=== PATIENT | female | born 2000 | race Caucasian/White ===

== ENCOUNTER 2024-12-24 03:19 | Emergency (ER) | payer BC, MEDICAID, SELFPAY ==
[2024-12-24 03:41] VITALS: BP 103/69; PULSE 63; RESP 18; TEMP 36.6; O2SAT 96; BMI 16.1
[2024-12-24 03:48] VITALS: BP 103/69; PULSE 68; RESP 18; O2SAT 98
[2024-12-24 04:21] LABS: Hematocrit 38.0 % (36-47); Hemoglobin 12.40 g/dL (11.27-16.99); Mean Corpuscular HGB Conc 32.6 g/dL (30-55); Mean Corpuscular Hemoglobin 27.6 pg (27-33); Mean Corpuscular Volume 84.6 fl (85-98); Nucleated Red Blood Cells % 0 %; Platelet Count 406 10^3/cmm (157-399); Red Blood Count 4.49 10^6/uL (3.85-5.65); White Blood Count 11.67 10^3/uL (3.29-11.43)
[2024-12-24 04:22] LABS: Glucose Urine UA Negative (Normal); Nitrate Urine Negative (Negative); Specific Gravity, Urine 1.024 (1.005-1.030)
--- NOTE | 2024-12-24 04:22 | W.ED.ABDPA2 ---
HPI - Abdominal Pain General: Chief Complaint: Abdominal Pain Stated Complaint: Cramping on LT side, vomiting Time Seen by Provider: 12/24/24 03:51 History of Present Illness: Patient is a 24-year-old female who presents with left lower quadrant abdominal pain that began acutely at approximately 1:00 AM today, waking her from sleep. She reports the pain was initially severe with cramping, but has somewhat improved since arrival to the ER. Pain is exacerbated by deep breathing. She experienced one episode of vomiting when the pain first started. Patient denies fever or diarrhea and reports she was unable to have a bowel movement when she tried. She also reports dysuria and believes she may have a UTI currently. Patient had appendectomy in September 2024 for appendicitis and states the current pain is similar but less severe than her previous appendicitis pain. Patient reports that during her previous medical evaluation, there was mention of possible ovarian cysts if appendicitis was ruled out. Patient denies vaginal bleeding or discharge. She reports a negative test approximately two weeks ago after her last menstrual period. Related Data Previous Rx's ?Medication ?Instructions ?Recorded cefdinir 300 mg capsule 300 mg PO BID 5 days #10 caps 12/24/24 ketorolac 10 mg tablet 10 mg PO TID PRN pain #10 tabs 12/24/24 ondansetron 4 mg disintegrating 4 mg PO Q6H PRN nausea and 12/24/24 tablet vomiting #14 tabs Review of Systems Narrative: Constitutional: Denies fever Gastrointestinal: Reports left lower quadrant abdominal pain, one episode of vomiting, unable to have bowel movement. Denies diarrhea Genitourinary: Reports dysuria, possible UTI. Denies vaginal bleeding or discharge Reproductive: Last menstrual period approximately 2 weeks ago, negative test at that time Physical Exam Const: COMMON NORMALS: no acute distress GENERAL APPEARANCE: cooperative; not ill appearing and not frail appearing HENMT: COMMON NORMALS: normocephalic, atraumatic and Normal external nose present HEAD & SCALP: normocephalic and atraumatic FACE & SINUS: normal facial exam and face symmetric NOSE: Normal external nose present Eye: COMMON NORMALS: Equal, round and reactive pupils present and EOMs intact bilaterally PUPIL: Yes Equal, round and reactive pupils present Neck/C-Spine: GENERAL: Yes trachea midline Chest: CHEST: Yes Symmetrical chest wall rise Resp: COMMON NORMALS: normal respiratory effort, No retractions, No use of accessory muscles and clear to auscultation bilaterally AUSCULTATION: clear to auscultation bilaterally Cardio: COMMON NORMALS: regular rate and regular rhythm RATE: regular rate RHYTHM: regular rhythm GI: COMMON NORMALS: Normal to inspection, nondistended, normoactive bowel sounds present Extremity: COMMON NORMALS: no pedal edema Neuro: MARIA DE JESUS COMA SCALE: document GCS findings [place] coma scale eye opening: Spontaneous Maria De Jesus coma scale verbal response: Orientated Maria De Jesus coma scale motor response: Obey commands Maria De Jesus coma scale total score: 15 SENSORY EXAM: Yes extremities (intact) Psych: COMMON NORMALS: speech normal SPEECH: Yes normal speech Course Vital Signs: Vital signs: Vital Signs Temperature 98 F 12/24/24 03:41 Pulse Rate 75 12/24/24 06:36 Respiratory Rate 14 12/24/24 06:36 Blood Pressure 103/64 12/24/24 06:36 Pulse Oximetry 94 12/24/24 06:36 Oxygen Delivery Me thod Room Air 12/24/24 06:36 MDM - Abdominal Pain Medical Decision Making The patient's vitals were normal. She is afebrile. Her pain is improved. Blood cell count is 11.7. Blood count 406. Bicarbonate 21. Other laboratory not remarkable. Her urinalysis showed 2+ leukocyte esterase with > 100 white blood cells, and some blood . CT reveals no obstructive uropathy. There is a non-obstructing right renal stone. There is thickening of the wall of the urinary bladder consistent with her urinary tract infection. She received Rocephin here. We will continue her on Cefdinir. Symptomatic treatment otherwise. Return for worsening symptoms despite treatment. Outpatient follow up. Lab Data 12/24/24 04:00 12/24/24 04:00 Labs/Radiology: Radiology Impressions Abdomen/Pelvis CT 12/24/24 04:44 IMPRESSION: 1. Nonobstructing right renal calculus. 2. Possible thickening of the wall of the urinary bladder. COMMENTS: Consistent with the [employer]'s Incidental Findings Committee white paper (J Am Grover Radiol 2018): Any incidental renal lesion less than 1 cm or classified as too small to characterize, or any incidental cystic renal lesion characterized as simple-appearing, is likely benign. No follow-up imaging is recommended for these lesions per consensus recommendations based on imaging criteria. Laboratory Results WBC 11.67 10^3/uL (3.29-11.43) H 12/24/24 04:00 RBC 4.49 10^6/uL (3.85-5.65) 12/24/24 04:00 Hgb 12.40 g/dL (11.27-16.99) 12/24/24 04:00 Hct 38.0 % (36-47) 12/24/24 04:00 MCV 84.6 fl (85-98) L 12/24/24 04:00 MCH 27.6 pg (27-33) 12/24/24 04:00 MCHC 32.6 g/dL (30-55) 12/24/24 04:00 RDW 15.9 % (12.1-15.1) H 12/24/24 04:00 Plt Count 406 10^3/cmm (157-399) H 12/24/24 04:00 MPV 10.9 fL (7.4-10.4) H 12/24/24 04:00 Neut % (Auto) 81.1 % 12/24/24 04:00 Lymph % (Auto) 11.4 % 12/24/24 04:00 [place] % (Auto) 6.2 % 12/24/24 04:00 Eos % (Auto) 0.5 % 12/24/24 04:00 Baso % (Auto) 0.5 % 12/24/24 04:00 Neut # (Auto) 9.46 10^3/uL (1.8-7.7) H 12/24/24 04:00 Lymph # (Auto) 1.3 10^3/uL (0.8-4.8) 12/24/24 04:00 [place] # (Auto) 0.7 10^3/uL (0.2-0.9) 12/24/24 04:00 Eos # (Auto) 0.1 10^3/uL (0.0-0.8) 12/24/24 04:00 Baso # (Auto) 0.1 10^3/uL (0.0-0.1) 12/24/24 04:00 Nucleated RBC % (auto) 0 % 12/24/24 04:00 Nucleated RBCs # 0.0 /100WBC 12/24/24 04:00 Sodium 136 mmol/L (136-145) 12/24/24 04:00 Potassium 4.3 mmol/L (3.5-5.1) 12/24/24 04:00 Chloride 101 mmol/L (98-107) 12/24/24 04:00 Carbon Dioxide 21 mmol/L (22-29) L 12/24/24 04:00 Anion Gap 18.3 (5-19) 12/24/24 04:00 BUN 12 mg/dL (6-20) 12/24/24 04:00 Creatinine 0.5 mg/dL (0.5-0.9) 12/24/24 04:00 GFR Calculation 152.9 mL/min (90-130) H 12/24/24 04:00 Glucose 116 mg/dL (65-115) H 12/24/24 04:00 Calculated Osmolality 283 mOsm/kg (285-295) L 12/24/24 04:00 Calcium 9.5 mg/dL (8.5-10.5) 12/24/24 04:00 Total Bilirubin 1.1 mg/dL (0.15-1.2) 12/24/24 04:00 AST 17 U/L (0-32) 12/24/24 04:00 ALT 11 U/L (0-33) 12/24/24 04:00 Alkaline Phosphatase 84 U/L (35-105) 12/24/24 04:00 C-Reactive Protein 8.7 mg/L (0.0-4.9) H 12/24/24 04:00 Total Protein 9.3 g/dL (6.6-8.7) H 12/24/24 04:00 Albumin 4.7 g/dL (3.5-5.2) 12/24/24 04:00 Globulin 4.6 g/dL (1.3-4.6) 12/24/24 04:00 Lipase 29 U/L (13-60) 12/24/24 04:00 HCG, Qual Negative (Negative) 12/24/24 04:00 Urine Color Dark yellow (Yellow) A 12/24/24 04:10 Urine Appearance Turbid (CLEAR) A 12/24/24 04:10 Urine pH 6.5 (5-7) 12/24/24 04:10 Ur Specific [place] 1.024 (1.005-1.030) 12/24/24 04:10 Urine Protein 2+ (Negative) A 12/24/24 04:10 Urine Glucose (UA) Negative (Normal) 12/24/24 04:10 Urine Ketones Trace (Negative) 12/24/24 04:10 Urine Blood 2+ (Negative) A 12/24/24 04:10 Urine Nitrate Negative (Negative) 12/24/24 04:10 Urine Bilirubin Negative (Negative) 12/24/24 04:10 Urine Urobilinogen 1.0 mg/dL (Negative) 12/24/24 04:10 Ur Leukocyte Esterase 2+ (Negative) A 12/24/24 04:10 Urine RBC 6-10 /hpf (0-2) 12/24/24 04:10 Urine WBC >100 /hpf (0-5) H 12/24/24 04:10 Ur Squamous Epith Cells 0-5 /hpf (0-5) 12/24/24 04:10 Amorphous Sediment Not Reportable 12/24/24 04:10 Urine Bacteria 2+ /hpf (NONE) H 12/24/24 04:10 Hyaline Casts 9.91 /lpf 12/24/24 04:10 Urine Mucus 4+ /hpf 12/24/24 04:10 All radiology interpretation(s) finalized by discharge Discharge Plan Discharge Patient Disposition: Home Clinical Impression: UTI (urinary tract infection) Condition: Stable Prescriptions: New cefdinir 300 mg capsule 300 mg PO BID 5 Days Qty: 10 0RF ketorolac 10 mg tablet 10 mg PO TID PRN (Reason: pain) Qty: 10 0RF ondansetron 4 mg tablet,disintegrating 4 mg PO Q6H PRN (Reason: nausea and vomiting) Qty: 14 0RF Discharge Orders: Discharge ED (Routine); Ordered 12/24/24 Ordered By: Etelvina Mcconnell Patient Instructions: Urinary Tract Infection in Women (ED), Opioid Safety, Pain Management, Patient Portal & [facility] Instructions Activity Restrictions/Additional Instructions: Return for fever greater than 100 ?F despite 2-3 more doses of antibiotics, vomiting liquids, worsening pain despite treatment, any other concerning symptoms. Follow-up with your doctor this coming week. Call Thursday for an appointment. Print Language: [place] Irish Coding Level of Care Code ED Supervisor Advice for Angelina Chanel
[2024-12-24 04:24] LABS: Add Urine Microscopic? YES
[2024-12-24 04:24] LABS: HCG, Serum Qual Negative (Negative)
[2024-12-24 04:38] LABS: Alanine Aminotransferase 11 U/L (0-33); Albumin Level 4.7 g/dL (3.5-5.2); Alkaline Phosphatase 84 U/L (35-105); Anion Gap 18.3 (5-19); Aspartate Amino Transferase 17 U/L (0-32); Blood Urea Nitrogen 12 mg/dL (6-20); Calcium 9.5 mg/dL (8.5-10.5); Carbon Dioxide 21 mmol/L (22-29); Chloride 101 mmol/L (98-107); Creatinine Clr Calc Pharmacy 125.3042; Globulin 4.6 g/dL (1.3-4.6); Glucose 116 mg/dL (65-115); Lipase 29 U/L (13-60); Osmolality Calculated 283 mOsm/kg (285-295); Potassium 4.3 mmol/L (3.5-5.1); Sodium 136 mmol/L (136-145); Total Protein 9.3 g/dL (6.6-8.7)
[2024-12-24 04:39] LABS: UA Slide Review UA Slide Review Perf
--- NOTE | 2024-12-24 04:44 | CTR_ITS ---
PROCEDURE INFORMATION: Exam: CT Abdomen And Pelvis Without Contrast Exam date and time: 12/24/2024 4:54 AM Age: 24 years old Clinical indication: Abdominal pain; Localized; Left lower quadrant (llq); Prior surgery; Surgery date: 1-6 months; Surgery type: Appy; Llq pain with hematuria; Additional info: Llq pain, hematuria, UTI TECHNIQUE: Imaging protocol: Computed tomography of the abdomen and pelvis without contrast. Radiation optimization: All CT scans at this facility use at least one of these dose optimization techniques: automated exposure control; mA and/or kV adjustment per patient size (includes targeted exams where dose is matched to clinical indication); or iterative reconstruction. COMPARISON: No relevant prior studies available. RADIATION DOSE METRICS: Total DLP (mGy-cm): 365.6 FINDINGS: Liver: Normal. No mass. Gallbladder and biliary ducts: Normal. No calcified stones. No ductal dilation. Pancreas: Normal. No ductal dilation. Spleen: Normal. No splenomegaly. Adrenal glands: Normal. No mass. Kidneys and ureters: Punctate nonobstructing right renal calculus. Minimally hyperdense renal pyramids, a nonspecific finding. Stomach and bowel: Unremarkable. No obstruction. No mucosal thickening. Appendix: No evidence of appendicitis. Intraperitoneal space: Minimal free fluid within the cul-de-sac. Vasculature: Unremarkable. No abdominal aortic aneurysm. Lymph nodes: Unremarkable. No enlarged lymph nodes. Urinary bladder: Urinary bladder is nearly empty, its wall might be slightly thickened. Reproductive: Unremarkable as visualized. Bones/joints: Unremarkable. No acute fracture. Soft tissues: Unremarkable. CT/CT kidney stone [id number] IMPRESSION: 1. Nonobstructing right renal calculus. 2. Possible thickening of the wall of the urinary bladder. COMMENTS: Consistent with the [employer]'s Incidental Findings Committee white paper (J Am Grover Radiol 2018): Any incidental renal lesion less than 1 cm or classified as too small to characterize, or any incidental cystic renal lesion characterized as simple-appearing, is likely benign. No follow-up imaging is recommended for these lesions per consensus recommendations based on imaging criteria.
[2024-12-24] MEDS: ondansetron 2 mg/ML SDV 2 mL 4 MG IVP (04:49)
[2024-12-24 06:04] VITALS: BP 103/69; PULSE 80; RESP 16; O2SAT 96
[2024-12-24] MEDS: cefTRIAXone 1,000 mg SDV 1000 MG IVP (06:35)
[2024-12-24 06:36] VITALS: BP 103/64; PULSE 75; RESP 14; O2SAT 94
== END 2024-12-24 07:04 | disposition home or self-care (01) ==
PROVIDERS: Emergency Provider Emergency Medicine
DX: N39.0 Urinary tract infection, site not specified (principal); N20.0 Calculus of kidney
CPT/HCPCS: 36415; 74176; 80053; 81001; 83690; 84703; 85025; 86140; 87086; 96374; 96375; 99285; J0696; J1885; J2405